=== PATIENT | female | born 1950 | race Hispanic/Latino ===

== ENCOUNTER 2017-04-25 18:17 | Observation (INO) | payer BC, MEDICARE ==
[~2017-04-25] VITALS: Ht 152.4 cm; Wt 82.9 kg
[2017-04-25 18:49] LABS: BASOPHILS % (AUTO) 0.3 % (0.0-5.0); EOSINOPHILS % (AUTO) 0.1 % (0.0-8.0); HEMATOCRIT 40.6 % (36-48); LYMPHOCYTES % (AUTO) 7.5 % (21.0-51.0); MEAN CORPUSCULAR HEMOGLOBIN 32.1 pg (27.0-33.0); MEAN CORPUSCULAR HGB CONC 32.9 g/dL (32.0-36.0); MEAN CORPUSCULAR VOLUME 97.4 fL (79-99); MONOCYTES % (AUTO) 8.4 % (3.0-13.0); NEUTROPHILS % (AUTO) 83.7 % (40.0-77.0); PLATELET COUNT (AUTO) 327 K/uL (130-400); RED BLOOD CELL COUNT(AUTO) 4.16 MIL/uL (4.00-5.50); RED CELL DISTRIBUTION WIDTH 15.3 % (11.0-15.5); WHITE BLOOD COUNT (AUTO) 19.4 K/uL (4.8-10.8)
[2017-04-25 19:03] LABS: INR 0.94 (0.85-1.15); PARTIAL THROMBOPLASTIN TIME 27.4 SEC (26.3-35.5); PROTHROMBIN TIME 9.9 SEC (9.6-11.6)
[2017-04-25 19:06] LABS: POTASSIUM 3.7 mmol/L (3.5-5.1)
[2017-04-25 19:21] LABS: BILIRUBIN,TOTAL 0.4 mg/dL (0.2-1.0); CREATINE KINASE MB 1.1 ng/mL (0.5-3.6); TOTAL PROTEIN, SERUM 7.8 g/dL (6.0-8.3)
[2017-04-25 20:14] LABS: APPEARANCE,URINE Cloudy (CLEAR); BILIRUBIN,URINE Negative (NEGATIVE); COLOR,URINE Yellow (YELLOW); GLUCOSE, URINE (UA) Negative (NEGATIVE); KETONES,URINE Negative (NEGATIVE); LEUKOCYTE ESTERASE ,URINE Negative (NEGATIVE); NITRATE,URINE Negative (NEGATIVE); OCCULT BLOOD,URINE Negative (NEGATIVE); PH,URINE 5.5 (5.0-8.0); PROTEIN,URINE Negative (NEGATIVE); UROBILINOGEN,URINE 0.2 mg/dL (0.2-1.0)
[2017-04-25 21:09] LABS: RAPID GROUP A STREP NEGATIVE (NEGATIVE)
[2017-04-25] MEDS ORDERED: IOPAMIDOL-370 100 ML VIAL IV ONE (22:47)
[2017-04-26] MEDS ORDERED: ACETAMINOPHEN-CODEINE 300/30MG TAB ONE (01:18)
[2017-04-26] MEDS ORDERED: SODIUM CHLORIDE 0.9% 1000ML 1,000 ML IV ONE (01:57)
[2017-04-26] MEDS ORDERED: LEVOFLOXACIN 500 MG/D5W 100 ML 100 ML ONE (01:57)
[2017-04-26 02:34] VITALS: BP 130/70
[2017-04-26] MEDS ORDERED: IPRATROPIUM/ALBUTEROL SULFATE 3 ML SOLUTION IH ONE (05:11)
[2017-04-26 05:39] LABS: HEMATOCRIT 35.4 % (36-48); MEAN CORPUSCULAR HEMOGLOBIN 33.3 pg (27.0-33.0); MEAN CORPUSCULAR HGB CONC 34.4 g/dL (32.0-36.0); MEAN CORPUSCULAR VOLUME 96.8 fL (79-99); PLATELET COUNT (AUTO) 289 K/uL (130-400); RED BLOOD CELL COUNT(AUTO) 3.65 MIL/uL (4.00-5.50); RED CELL DISTRIBUTION WIDTH 15.4 % (11.0-15.5); WHITE BLOOD COUNT (AUTO) 10.9 K/uL (4.8-10.8)
[2017-04-26] MEDS ORDERED: LIDOCAINE HCL-MPF 1% 2ML VIAL IVP PRN (05:45)
[2017-04-26] MEDS ORDERED: CLONIDINE HCL 0.1 MG TABLET PO PRN (05:45)
[2017-04-26] MEDS ORDERED: GUAIFENESIN-DM 200/20 MG 10 ML PO PRN (05:45)
[2017-04-26] MEDS ORDERED: POTASSIUM CHLORIDE 20MEQ/100ML 100 ML IV PRN (05:45)
[2017-04-26] MEDS ORDERED: LACTULOSE 20 GM/30 ML UDCUP PO PRN (05:45)
[2017-04-26] MEDS ORDERED: POTASSIUM CHLORIDE 20 MEQ ERTAB PO PRN (05:45)
[2017-04-26] MEDS ORDERED: NITROGLYCERIN 0.4 MG SL TAB SL PRN (05:45)
[2017-04-26] MEDS ORDERED: ACETAMINOPHEN 325 MG TAB PO PRN (05:45)
[2017-04-26] MEDS ORDERED: POTASSIUM CHLORIDE 10% ELIXIR 20 MEQ/15 ML UDCUP PO PRN (05:45)
[2017-04-26] MEDS ORDERED: SODIUM CHLORIDE 0.9% 1000ML 1,000 ML IV SCH (05:45)
[2017-04-26 06:12] LABS: CARBON DIOXIDE 28 mmol/L (21-32); CHLORIDE 105 mmol/L (101-111); CREATINE KINASE MB 0.9 ng/mL (0.5-3.6); CREATINE KINASE, TOTAL 49 U/L (21-232); CREATININE 0.9 mg/dL (0.5-1.5); GLOMERULAR FILTR. RATE CALC 67 mL/min (>60); GLUCOSE,RANDOM 75 mg/dL (70-105); MYOGLOBIN 55 ng/mL (10-92); POTASSIUM 3.6 mmol/L (3.5-5.1); SODIUM SERUM 140 mmol/L (136-145); TROPONIN I < 0.04 ng/mL (0.00-0.06); UREA NITROGEN, BLOOD 12 mg/dL (7-18)
[2017-04-26 07:30] VITALS: BP 125/68
[2017-04-26] MEDS ORDERED: PNEUMOCOCCAL VACCINE POLYVALENT 0.5 ML/VIAL [PPV] IM SCH (08:00)
[2017-04-26 08:14] LABS: EOSINOPHILS % (MANUAL) 1 % (1-6); LYMPHOCYTES % (MANUAL) 12 % (22-44); MAN.DIFF COMMENT-IMPRESSION MANUAL DIFFERENTIAL; MONOCYTES % (MANUAL) 5 % (2-9); PLATELET MORPHOLOGY COMMENT ADEQUATE; SEGMENTED NEUTROPHILS % 82 % (40-70)
[2017-04-26 08:16] LABS: ERYTHROCYTE SEDIMENTATION RATE 75 MM/HR (0-15)
[2017-04-26] MEDS ORDERED: ASPIRIN 81MG TAB.CHEW PO SCH (09:00)
[2017-04-26] MEDS ORDERED: FAMOTIDINE 20MG TAB 20 MG TAB PO SCH (09:00)
[2017-04-26] MEDS ORDERED: OMEP40CA37 PO (10:52)
[2017-04-26] MEDS ORDERED: HYDR200T82 PO (10:52)
[2017-04-26] MEDS ORDERED: BENZ200C53 PO (10:52)
[2017-04-26] MEDS ORDERED: SULF500T8 PO (10:52)
[2017-04-26] MEDS ORDERED: TOFA11TA PO (10:52)
[2017-04-26] MEDS ORDERED: PRED5TAB44 PO (10:52)
[2017-04-26 11:00] VITALS: BP 145/70
[2017-04-26 11:33] LABS: CREATINE KINASE MB 0.6 ng/mL (0.5-3.6); CREATINE KINASE, TOTAL 56 U/L (21-232); MYOGLOBIN 45 ng/mL (10-92); TROPONIN I < 0.04 ng/mL (0.00-0.06)
[2017-04-27] MEDS ORDERED: LEVOFLOXACIN 500 MG/D5W 100 ML 100 ML IV SCH (04:00)
== END 2017-04-26 13:40 | disposition home or self-care (01) ==
LOC: EDH 18:17 → EDHIP 22:00 → 3CH 04-26 02:52
PROVIDERS: ADMIT Family Medicine; ATTEND Family Medicine
DX: R07.89 Other chest pain (principal); M06.9 Rheumatoid arthritis, unspecified; J84.10 Pulmonary fibrosis, unspecified; D72.829 Elevated white blood cell count, unspecified; Z79.899 Other long term (current) drug therapy
CPT/HCPCS: 36415 ×2; 71046; 71275; 80048; 80053; 81001; 82550 ×3; 82553 ×3; 83605; 83874 ×2; 84484 ×3; 85025 ×2; 85610; 85651; 85730; 87040; 87804 ×2; 87880; 93005 ×2; 94640; 94664; 99285; G0378 ×16; J1956; J7030; Q9967

== ENCOUNTER 2017-07-27 07:14 | Emergency (ER) | payer BC, MEDICARE ==
[~2017-07-27 07:14] MED LIST: BENZ200C53 PO; HYDR200T82 PO; OMEP40CA37 PO; PRED5TAB44 PO; SULF500T8 PO; TOFA11TA PO
[2017-07-27] MEDS ORDERED: NITROGLYCERIN 0.4 MG SL TAB SL ONE (07:35)
[2017-07-27 07:39] LABS: BASOPHILS % (AUTO) 0.2 % (0.0-5.0); EOSINOPHILS % (AUTO) 0.4 % (0.0-8.0); HEMATOCRIT 38.5 % (36-48); LYMPHOCYTES % (AUTO) 6.3 % (21.0-51.0); MEAN CORPUSCULAR HEMOGLOBIN 32.7 pg (27.0-33.0); MEAN CORPUSCULAR HGB CONC 33.7 g/dL (32.0-36.0); MEAN CORPUSCULAR VOLUME 96.9 fL (79-99); MONOCYTES % (AUTO) 5.6 % (3.0-13.0); NEUTROPHILS % (AUTO) 87.5 % (40.0-77.0); PLATELET COUNT (AUTO) 248 K/uL (130-400); RED BLOOD CELL COUNT(AUTO) 3.97 MIL/uL (4.00-5.50); RED CELL DISTRIBUTION WIDTH 14.8 % (11.0-15.5); WHITE BLOOD COUNT (AUTO) 14.2 K/uL (4.8-10.8)
[2017-07-27 07:54] LABS: CREATININE 0.9 mg/dL (0.5-1.5); POTASSIUM 3.6 mmol/L (3.5-5.1)
[2017-07-27 08:10] LABS: BILIRUBIN,TOTAL 0.3 mg/dL (0.2-1.0); CREATINE KINASE MB 1.3 ng/mL (0.5-3.6); TOTAL PROTEIN, SERUM 7.2 g/dL (6.0-8.3)
[2017-07-27 08:19] LABS: INR 0.92 (0.85-1.15); PARTIAL THROMBOPLASTIN TIME 25.7 SEC (26.3-35.5); PROTHROMBIN TIME 9.7 SEC (9.6-11.6)
[2017-07-27] MEDS ORDERED: METHYLPREDNISOLONE SOD SUCC 40MG/ML 1ML ONE (08:23)
[2017-07-27] MEDS ORDERED: ALBUTEROL SULFATE 0.083% 2.5 MG/3 ML INH IH ONE (08:40)
[2017-07-27] MEDS ORDERED: KETOROLAC TROMETHAMINE 15MG/ML ONE (10:33)
== END 2017-07-27 11:40 | disposition home or self-care (01) ==
LOC: EDH 07:14
DX: R07.89 Other chest pain (principal); R06.02 Shortness of breath; M79.605 Pain in left leg; M06.9 Rheumatoid arthritis, unspecified
CPT/HCPCS: 36415; 71045; 80053; 82550; 82553; 84484 ×2; 85025; 85610; 85730; 93005 ×2; 94640; 96374; 96375; 99285; J1885; J2920

== ENCOUNTER 2019-08-15 12:50 | Emergency (ER) | payer BC, MEDICARE | END 2019-08-15 15:26 | disposition home or self-care (01) | LOC: EDH 12:50 | DX: U07.1 COVID-19 (principal); B34.9 Viral infection, unspecified; M06.9 Rheumatoid arthritis, unspecified | CPT/HCPCS: 36415; 71045; 80053; 81001; 82550; 82728; 83605; 83874; 84145; 84484; 85025; 85610; 85730; 87040 ×2; 87088; 87804 ×2; 93005; 99285; U0003 ==

== ENCOUNTER 2020-05-17 11:49 | Observation (INO) | payer BC, MEDICARE ==
[~2020-05-17 11:49] MED LIST changes: +OMEP40CA13 PO; -OMEP40CA37 PO
[2020-05-17 12:24] LABS: BASOPHILS % (AUTO) 0.2 % (0.0-5.0); EOSINOPHILS % (AUTO) 0.9 % (0.0-8.0); HEMATOCRIT 35.6 % (36-48); LYMPHOCYTES % (AUTO) 4.9 % (21.0-51.0); MEAN CORPUSCULAR HGB CONC 32.9 g/dL (32.0-36.0); MEAN CORPUSCULAR VOLUME 94.2 fL (79-99); NEUTROPHILS % (AUTO) 87.6 % (40.0-77.0); PLATELET COUNT (AUTO) 189 K/uL (130-400); RED BLOOD CELL COUNT(AUTO) 3.78 MIL/uL (4.00-5.50); RED CELL DISTRIBUTION WIDTH 16.9 % (11.0-15.5); WHITE BLOOD COUNT (AUTO) 10.3 K/uL (4.8-10.8)
[2020-05-17] MEDS ORDERED: MECLIZINE HCL 25 MG TABLET ONE (12:27)
[2020-05-17 12:35] LABS: INR 0.98 (0.85-1.15); PROTHROMBIN TIME 10.7 SEC (9.6-11.6)
[2020-05-17 12:36] LABS: PARTIAL THROMBOPLASTIN TIME 22.3 SEC (26.3-35.5)
[2020-05-17 12:46] LABS: CREATININE 0.8 mg/dL (0.5-1.5); POTASSIUM 3.7 mmol/L (3.5-5.1)
[2020-05-17 12:48] LABS: B-TYPE NATRIURETIC PEPTIDE 71 pg/mL (0-100)
[2020-05-17 12:50] LABS: ALBUMIN 2.8 g/dL (3.5-5.0); BILIRUBIN,TOTAL 0.4 mg/dL (0.2-1.0); TOTAL PROTEIN, SERUM 6.6 g/dL (6.0-8.3)
[2020-05-17] MEDS ORDERED: IOHEXOL-350 75 ML VIAL IV ONE (14:45)
[2020-05-17] MEDS ORDERED: LIDOCAINE HCL-MPF 1% 2ML VIAL IV PRN ×2 (15:15)
[2020-05-17] MEDS ORDERED: POTASSIUM CHLORIDE 20MEQ/100ML 100 ML IV PRN ×2 (15:15)
[2020-05-17] MEDS: ENOXAPARIN SODIUM 40 MG/0.4 ML SYRINGE SQ SCH (15:15)
[2020-05-17] MEDS ORDERED: POTASSIUM CHLORIDE 20 MEQ ERTAB PO PRN (15:15)
[2020-05-17] MEDS ORDERED: LABETALOL HCL 5 MG/ML 20ML VIAL IV PRN (15:15)
[2020-05-17] MEDS: SODIUM CHLORIDE 0.9% 1000ML 1,000 ML IV SCH (15:15)
[2020-05-17] MEDS ORDERED: DEXTROSE 50%-WATER 50 ML DISP.SYRIN IV PRN (15:15)
[2020-05-17] MEDS ORDERED: POTASSIUM CHLORIDE 10% ELIXIR 20 MEQ/15 ML UDCUP PO PRN (15:15)
[2020-05-17] MEDS ORDERED: ONDANSETRON HCL 4 MG/2 ML VIAL IVP PRN (15:15)
[2020-05-17] MEDS ORDERED: GLUCAGON 1MG KIT 1 MG ML IM PRN (15:15)
[2020-05-17] MEDS ORDERED: ACETAMINOPHEN 325 MG TAB PO PRN (15:15)
[2020-05-17] MEDS ORDERED: MAGNESIUM 2GM PREMIX 50ML 50 ML IV PRN (15:15)
[2020-05-17 15:59] LABS: APPEARANCE,URINE Turbid (CLEAR); BILIRUBIN,URINE Negative (NEGATIVE); COLOR,URINE Yellow (YELLOW); GLUCOSE, URINE (UA) Negative (NEGATIVE); KETONES,URINE 15 mg/dL (NEGATIVE); LEUKOCYTE ESTERASE ,URINE Small (NEGATIVE); NITRATE,URINE Negative (NEGATIVE); OCCULT BLOOD,URINE Negative (NEGATIVE); PH,URINE 5.5 (5.0-8.0); PROTEIN,URINE POS 1+ mg/dL (NEGATIVE); UROBILINOGEN,URINE 0.2 mg/dL (0.2-1.0)
[2020-05-17 16:04] LABS: BACTERIA,URINE Many /HPF (None Seen); RBC,URINE None Seen /HPF (0-1); SQUAMOUS EPITHELIAL CELL,UR TNTC /HPF (0-2)
[2020-05-17] MEDS: INSULIN HUMULIN R 100 UNIT/ML 3ML SQ SCH ×2 (16:30→21:00)
[2020-05-17 16:57] LABS: HEMOGLOBIN A1C 5.4 % (4.0-6.0)
[2020-05-17] MEDS ORDERED: SODIUM CHLORIDE 0.9% 1000ML 1,000 ML IV ONE (18:34)
[2020-05-17] MEDS ORDERED: ENOXAPARIN SODIUM 40 MG/0.4 ML SYRINGE SQ ONE (18:34)
[2020-05-18] MEDS: SODIUM CHLORIDE 0.9% 1000ML 1,000 ML IV SCH ×2 (04:35→16:56)
[2020-05-18 06:24] LABS: HEMATOCRIT 33.1 % (36-48); MEAN CORPUSCULAR HEMOGLOBIN 30.2 pg (27.0-33.0); MEAN CORPUSCULAR HGB CONC 32.3 g/dL (32.0-36.0); MEAN CORPUSCULAR VOLUME 93.5 fL (79-99); RED BLOOD CELL COUNT(AUTO) 3.54 MIL/uL (4.00-5.50); RED CELL DISTRIBUTION WIDTH 16.8 % (11.0-15.5); WHITE BLOOD COUNT (AUTO) 7.6 K/uL (4.8-10.8)
[2020-05-18 06:41] LABS: ALBUMIN 2.4 g/dL (3.5-5.0); BILIRUBIN,TOTAL 0.4 mg/dL (0.2-1.0); CREATININE 0.7 mg/dL (0.5-1.5); POTASSIUM 3.2 mmol/L (3.5-5.1); TOTAL PROTEIN, SERUM 5.8 g/dL (6.0-8.3)
[2020-05-18] MEDS: INSULIN HUMULIN R 100 UNIT/ML 3ML SQ SCH ×4 (07:30→20:22)
[2020-05-18] MEDS ORDERED: ASPIRIN 81MG TAB.CHEW ONE (08:22)
[2020-05-18] MEDS ORDERED: ENOXAPARIN SODIUM 40 MG/0.4 ML SYRINGE SQ ONE (08:22)
[2020-05-18] MEDS ORDERED: PANTOPRAZOLE SODIUM 40 MG TABLET.DR ONE (08:23)
[2020-05-18] MEDS ORDERED: POTASSIUM CHLORIDE 20 MEQ ERTAB PO ONE (08:35)
[2020-05-18] MEDS: ENOXAPARIN SODIUM 40 MG/0.4 ML SYRINGE SQ SCH (09:00)
[2020-05-18] MEDS: ASPIRIN 81MG TAB.CHEW PO SCH (09:00)
[2020-05-18] MEDS: PANTOPRAZOLE SODIUM 40 MG TABLET.DR PO SCH (09:00)
[2020-05-18 12:00] VITALS: BP 143/82
[2020-05-18 16:00] VITALS: BP 149/75
[2020-05-18 20:08] VITALS: BP 143/59
[2020-05-18] MEDS ORDERED: ATORVASTATIN CALCIUM 20 MG TABLET PO SCH (21:00)
[2020-05-18 23:48] VITALS: BP 124/70
[2020-05-19 05:00] VITALS: BP 124/57
[2020-05-19 05:17] LABS: ALBUMIN 2.3 g/dL (3.5-5.0); BILIRUBIN,TOTAL 0.4 mg/dL (0.2-1.0); CREATININE 0.9 mg/dL (0.5-1.5); POTASSIUM 3.8 mmol/L (3.5-5.1); TOTAL PROTEIN, SERUM 5.6 g/dL (6.0-8.3)
[2020-05-19] MEDS: INSULIN HUMULIN R 100 UNIT/ML 3ML SQ SCH ×2 (06:25→11:30)
[2020-05-19] MEDS: SODIUM CHLORIDE 0.9% 1000ML 1,000 ML IV SCH (06:34)
[2020-05-19 08:59] VITALS: BP 154/75
[2020-05-19] MEDS: PANTOPRAZOLE SODIUM 40 MG TABLET.DR PO SCH (08:59)
[2020-05-19] MEDS: ENOXAPARIN SODIUM 40 MG/0.4 ML SYRINGE SQ SCH (09:00)
[2020-05-19] MEDS: ASPIRIN 81MG TAB.CHEW PO SCH (09:00)
[2020-05-19] MEDS ORDERED: ATOR10 PO (09:07)
[2020-05-19] MEDS ORDERED: MELO10CA3 PO (09:09)
[2020-05-19] MEDS ORDERED: HYDR200T82 PO (09:10)
[2020-05-19] MEDS ORDERED: LEFL10TA PO (09:11)
[2020-05-19] MEDS ORDERED: LACT1CAP78 PO (09:14)
[2020-05-19] MEDS ORDERED: CEFTRIAXONE SODIUM 1 GM IVP SCH (09:30)
[2020-05-19 12:35] VITALS: BP 150/83
[2020-05-19] MEDS ORDERED: LEVO500T89 PO (12:57)
== END 2020-05-19 15:10 | disposition home or self-care (01) ==
LOC: EDH 11:49 → EDHIP 15:08 → 4DH 05-18 10:34
PROVIDERS: ADMIT Internal Medicine Pulmonary Disease; ATTEND Internal Medicine Pulmonary Disease
DX: R42 Dizziness and giddiness (principal); Z20.822 Contact with and (suspected) exposure to COVID-19; R41.3 Other amnesia; M06.9 Rheumatoid arthritis, unspecified; M79.662 Pain in left lower leg; M79.661 Pain in right lower leg; E78.5 Hyperlipidemia, unspecified; E66.9 Obesity, unspecified; I65.23 Occlusion and stenosis of bilateral carotid arteries; Z90.710 Acquired absence of both cervix and uterus; Z79.82 Long term (current) use of aspirin; Z79.899 Other long term (current) drug therapy
CPT/HCPCS: 36415 ×3; 70450; 70496; 70498; 70551; 71045; 80053 ×3; 80061; 81001; 82550; 82948 ×5; 83036; 83735; 83880; 84484 ×2; 85025; 85027; 85378; 85610; 85730; 87040 ×2; 87088; 87426; 92610; 93005; 93306; 93356; 93880; 93970; 96361; 96372; 96374; 99285; G0378 ×47; J0696; J1650 ×3; J7030; Q9967; U0003

== ENCOUNTER 2021-10-22 01:33 | Observation (INO) | payer MEDICARE ==
[~2021-10-22] VITALS: Ht 152.4 cm; Wt 55.3 kg
[~2021-10-22 01:33] MED LIST changes: +ATOR10 PO; +LACT1CAP78 PO; +LEFL10TA PO; +LEVO-70 PO; +MELO10CA3 PO; -OMEP40CA13 PO; -PRED5TAB44 PO; -SULF500T8 PO; -TOFA11TA PO
[2021-10-22] MEDS ORDERED: LACTATED RINGERS 1000ML 1,000 ML IV ONE (02:00)
[2021-10-22] MEDS ORDERED: HYDROMORPHONE 1 MG INJ IVP ONE (02:00)
[2021-10-22] MEDS ORDERED: ONDANSETRON 4MG INJ IVP ONE (02:00)
[2021-10-22 02:07] LABS: BASOPHILS % (AUTO) 0.3 % (0.0-5.0); EOSINOPHILS % (AUTO) 2.9 % (0.0-8.0); HEMATOCRIT 35.7 % (36-48); LYMPHOCYTES % (AUTO) 12.8 % (21.0-51.0); MEAN CORPUSCULAR HEMOGLOBIN 31.5 pg (27.0-33.0); MEAN CORPUSCULAR HGB CONC 32.8 g/dL (32.0-36.0); MEAN CORPUSCULAR VOLUME 96.2 fL (79-99); NEUTROPHILS % (AUTO) 74.7 % (40.0-77.0); PLATELET COUNT (AUTO) 242 K/uL (130-400); RED BLOOD CELL COUNT(AUTO) 3.71 MIL/uL (4.00-5.50); RED CELL DISTRIBUTION WIDTH 14.2 % (11.0-15.5)
[2021-10-22 02:18] LABS: POTASSIUM 4.4 mmol/L (3.5-5.1)
[2021-10-22 02:30] LABS: APPEARANCE,URINE CLEAR (CLEAR); BILIRUBIN,URINE NEGATIVE (NEGATIVE); COLOR,URINE YELLOW (YELLOW); GLUCOSE, URINE (UA) NEGATIVE (NEGATIVE); KETONES,URINE NEGATIVE (NEGATIVE); LEUKOCYTE ESTERASE ,URINE NEGATIVE (NEGATIVE); NITRATE,URINE NEGATIVE (NEGATIVE); OCCULT BLOOD,URINE NEGATIVE (NEGATIVE); PH,URINE 5.5 (5.0-8.0); PROTEIN,URINE 100 mg/dL (NEGATIVE); UROBILINOGEN,URINE 0.2 mg/dL (0.2-1.0)
[2021-10-22] MEDS ORDERED: ZOSYN 3.375GM +NS 50ML IV SCH ×2 (03:00→11:00)
[2021-10-22] MEDS ORDERED: IRON1CAP32 PO (03:19)
[2021-10-22] MEDS ORDERED: LEFL20TA18 PO (03:19)
[2021-10-22] MEDS ORDERED: ONDA-104 PO (03:19)
[2021-10-22] MEDS ORDERED: POTA-202 PO (03:19)
[2021-10-22] MEDS ORDERED: MELO10CA3 PO (03:19)
[2021-10-22] MEDS ORDERED: CARV6.25 PO (03:19)
[2021-10-22] MEDS ORDERED: HYDR200T4 PO (03:19)
[2021-10-22] MEDS ORDERED: ATOR10 PO (03:19)
[2021-10-22] MEDS ORDERED: HYDRALAZINE 20MG/ML VIAL IV PRN (04:00)
[2021-10-22] MEDS ORDERED: LABETALOL 20MG SYG IV PRN (04:00)
[2021-10-22] MEDS: LACTATED RINGERS 1000ML 1,000 ML IV SCH ×3 (04:16→20:48)
[2021-10-22 05:30] VITALS: BP 143/55
[2021-10-22 06:20] LABS: HEMATOCRIT 34.9 % (36-48); MEAN CORPUSCULAR HGB CONC 32.1 g/dL (32.0-36.0); MEAN CORPUSCULAR VOLUME 96.7 fL (79-99); RED BLOOD CELL COUNT(AUTO) 3.61 MIL/uL (4.00-5.50); RED CELL DISTRIBUTION WIDTH 14.1 % (11.0-15.5)
[2021-10-22 06:36] LABS: CREATININE 0.9 mg/dL (0.5-1.5); MAGNESIUM 1.7 mg/dL (1.80-2.40); POTASSIUM 3.9 mmol/L (3.5-5.1)
[2021-10-22] MEDS: INSULIN HUMULIN R 100 UNIT/ML 3ML SQ SCH ×4 (06:37→21:00)
[2021-10-22] MEDS: MORPHINE 2 MG SYG IVP PRN ×2 (06:43→10:54)
[2021-10-22 07:56] LABS: INR 0.98 (0.85-1.15); PROTHROMBIN TIME 10.7 SEC (9.6-11.6)
[2021-10-22 07:57] LABS: PARTIAL THROMBOPLASTIN TIME 27.9 SEC (26.3-35.5)
[2021-10-22 08:00] VITALS: BP 129/63
[2021-10-22] MEDS ORDERED: CLONIDINE HCL 0.1 MG TABLET PO PRN (08:00)
[2021-10-22] MEDS: ONDANSETRON 4MG INJ IVP PRN ×2 (10:52→21:37)
[2021-10-22 11:55] VITALS: BP 165/76
[2021-10-22] MEDS: HYDROMORPHONE 0.5 MG SYG (0.5MG/0.5ML) IVP PRN ×2 (13:53→21:38)
[2021-10-22] MEDS: ZOSYN 3.375GM +NS 50ML IV SCH ×2 (14:59→21:04)
[2021-10-22 16:00] VITALS: BP 152/72
[2021-10-22 19:00] VITALS: BP 155/82
[2021-10-23] VITALS (28 sets, daily range): BP systolic 126–184; BP diastolic 44–82
[2021-10-23] MEDS ORDERED: DEXTROSE 5%-WATER 1,000 ML IV ONE (00:51)
[2021-10-23] MEDS: DEXTROSE 5%-WATER 1,000 ML IV SCH ×2 (00:55→19:24)
[2021-10-23] MEDS ORDERED: DEXTROSE 50%-WATER 50 ML DISP.SYRIN IV PRN (01:00)
[2021-10-23] MEDS ORDERED: GLUCAGON 1MG KIT 1 MG ML IM PRN (01:00)
[2021-10-23] MEDS: HYDROMORPHONE 0.5 MG SYG (0.5MG/0.5ML) IVP PRN (03:19)
[2021-10-23] MEDS: LACTATED RINGERS 1000ML 1,000 ML IV SCH ×3 (04:00→20:00)
[2021-10-23 04:54] LABS: BASOPHILS % (AUTO) 0.3 % (0.0-5.0); EOSINOPHILS % (AUTO) 0.1 % (0.0-8.0); HEMATOCRIT 33.6 % (36-48); LYMPHOCYTES % (AUTO) 4.5 % (21.0-51.0); MEAN CORPUSCULAR HEMOGLOBIN 31.3 pg (27.0-33.0); MEAN CORPUSCULAR HGB CONC 32.4 g/dL (32.0-36.0); MEAN CORPUSCULAR VOLUME 96.6 fL (79-99); NEUTROPHILS % (AUTO) 85.5 % (40.0-77.0); PLATELET COUNT (AUTO) 196 K/uL (130-400); RED BLOOD CELL COUNT(AUTO) 3.48 MIL/uL (4.00-5.50); RED CELL DISTRIBUTION WIDTH 14.1 % (11.0-15.5); WHITE BLOOD COUNT (AUTO) 17.7 K/uL (4.8-10.8)
[2021-10-23] MEDS: ZOSYN 3.375GM +NS 50ML IV SCH ×3 (05:10→19:24)
[2021-10-23 05:26] LABS: ALBUMIN 2.4 g/dL (3.5-5.0); CREATININE 0.8 mg/dL (0.5-1.5); PHOSPHORUS 4.2 mg/dL (2.5-4.9); POTASSIUM 3.9 mmol/L (3.5-5.1); TOTAL PROTEIN, SERUM 5.9 g/dL (6.0-8.3)
[2021-10-23] MEDS: INSULIN HUMULIN R 100 UNIT/ML 3ML SQ SCH ×5 (06:00→19:26)
[2021-10-23] MEDS ORDERED: BUPIVACAINE/PF 0.5% 10ML VIAL ONE (06:46)
[2021-10-23] MEDS ORDERED: FENTANYL CITRATE PF 50 MCG/1 ML 5ML AMP IV ONE (06:49)
[2021-10-23] MEDS ORDERED: ROCURONIUM 10MG/1ML SYR 10 MG/ML ML ONE (06:49)
[2021-10-23] MEDS ORDERED: PROPOFOL 10 MG/ML 20ML VIAL IV ONE (06:49)
[2021-10-23] MEDS ORDERED: ONDANSETRON 4MG INJ ONE (06:50)
[2021-10-23] MEDS ORDERED: MIDAZOLAM HCL 1 MG/ML 2ML VIAL ONE (07:05)
[2021-10-23] MEDS ORDERED: PHENYLEPHRINE HCL 10 MG/ML 1ML VIAL IV ONE (07:21)
[2021-10-23] MEDS ORDERED: GLYCOPYRROLATE 1 MG/5 ML SYRINGE ONE (08:31)
[2021-10-23] MEDS ORDERED: NEOSTIGMINE 5MG/5ML SYR IV ONE (08:32)
[2021-10-23] MEDS ORDERED: MORPHINE 2 MG SYG ONE ×3 (08:49→09:11)
[2021-10-23 18:23] LABS: ALBUMIN 2.1 g/dL (3.5-5.0); BILIRUBIN,DIRECT 0.2 mg/dL (0.0-0.3); TOTAL PROTEIN, SERUM 5.3 g/dL (6.0-8.3)
[2021-10-23] MEDS: GUAIFENESIN-DM 200/20 MG 10 ML PO PRN (19:24)
[2021-10-24] VITALS: BP 130/65
[2021-10-24 04:00] VITALS: BP 135/73
[2021-10-24] MEDS: INSULIN HUMULIN R 100 UNIT/ML 3ML SQ SCH ×2 (05:18→12:00)
[2021-10-24] MEDS: ZOSYN 3.375GM +NS 50ML IV SCH ×2 (05:23→15:43)
[2021-10-24 05:24] LABS: BASOPHILS % (AUTO) 0.2 % (0.0-5.0); EOSINOPHILS % (AUTO) 0.3 % (0.0-8.0); HEMATOCRIT 29.8 % (36-48); LYMPHOCYTES % (AUTO) 7.1 % (21.0-51.0); MEAN CORPUSCULAR HEMOGLOBIN 30.4 pg (27.0-33.0); MEAN CORPUSCULAR HGB CONC 31.9 g/dL (32.0-36.0); MEAN CORPUSCULAR VOLUME 95.5 fL (79-99); MONOCYTES % (AUTO) 9.6 % (3.0-13.0); NEUTROPHILS % (AUTO) 82.3 % (40.0-77.0); PLATELET COUNT (AUTO) 169 K/uL (130-400); RED BLOOD CELL COUNT(AUTO) 3.12 MIL/uL (4.00-5.50); RED CELL DISTRIBUTION WIDTH 14.3 % (11.0-15.5); WHITE BLOOD COUNT (AUTO) 13.6 K/uL (4.8-10.8)
[2021-10-24 05:36] LABS: ALBUMIN 2.1 g/dL (3.5-5.0); BILIRUBIN,DIRECT 0.2 mg/dL (0.0-0.3); CREATININE 0.9 mg/dL (0.5-1.5); POTASSIUM 3.5 mmol/L (3.5-5.1); TOTAL PROTEIN, SERUM 5.4 g/dL (6.0-8.3)
[2021-10-24] MEDS: LACTATED RINGERS 1000ML 1,000 ML IV SCH (07:27)
[2021-10-24 08:00] VITALS: BP 149/74
[2021-10-24] MEDS: GUAIFENESIN-DM 200/20 MG 10 ML PO PRN (08:56)
[2021-10-24] MEDS ORDERED: ENOXAPARIN SODIUM 30 MG/0.3 ML SQ SCH (09:00)
[2021-10-24] MEDS ORDERED: AMOX-426 PO (11:22)
[2021-10-24] MEDS ORDERED: TRAM50TA4 PO (11:28)
[2021-10-24 11:49] VITALS: BP 121/54
[2021-10-24] MEDS ORDERED: ACETAMINOPHEN 325 MG TAB PO PRN (15:30)
== END 2021-10-24 17:20 | disposition home or self-care (01) ==
LOC: EDH 01:33 → EDHIP 03:34 → 4AH 05:21
PROVIDERS: ADMIT Internal Medicine Critical Care Medicine; ATTEND Internal Medicine Critical Care Medicine
DX: K81.0 Acute cholecystitis (principal); Z20.822 Contact with and (suspected) exposure to COVID-19; I10 Essential (primary) hypertension; J45.909 Unspecified asthma, uncomplicated; D72.829 Elevated white blood cell count, unspecified; E78.5 Hyperlipidemia, unspecified; E78.00 Pure hypercholesterolemia, unspecified; R11.2 Nausea with vomiting, unspecified; M19.90 Unspecified osteoarthritis, unspecified site; K82.A1 Gangrene of gallbladder in cholecystitis; M06.9 Rheumatoid arthritis, unspecified; Z90.710 Acquired absence of both cervix and uterus; Z79.899 Other long term (current) drug therapy; Z98.890 Other specified postprocedural states
CPT/HCPCS: 96376 ×2; 96361 ×2; 96365; 96366 ×3; 96375; 99285; 83735; 84484; 80053 ×3; 83690; 85025 ×3; 85027; 85610; 85730; 87040 ×2; 82948 ×10; 83605; 81003; 36415 ×3; 74176; 76705; 93005; 84145; 47562; 84100; 87635; 96372; 82248; G0378 ×58; J7120 ×3; J1170 ×4; J2405 ×4; J2543 ×8; J7030; A4215; J7070 ×4; J3010; J3490 ×2; J2710; J2250; J2704; J2370; A6206; C1769 ×4; A4649 ×3; J1650; 80048; 80076

== ENCOUNTER → 2023-02-21 | Outpatient (CLI) | payer MEDICARE ==
[~2023-02-21] MED LIST changes: +AMOX-426 PO; -BENZ200C53 PO; +CARV6.25 PO; +HYDR200T75 PO; +IRON1CAP32 PO; -LEFL10TA PO; +LEFL20TA18 PO; -LEVO-70 PO; +ONDA-104 PO; +POTA-202 PO; +TRAM50TA4 PO
== END | disposition home or self-care (01) ==
LOC: RAH 08:00
PROVIDERS: ATTEND Internal Medicine
DX: S33.140A Subluxation of L4/L5 lumbar vertebra, initial encounter (principal); M47.817 Spondylosis without myelopathy or radiculopathy, lumbosacral region; M54.50 Low back pain, unspecified; X58.XXXA Exposure to other specified factors, initial encounter; Y93.89 Activity, other specified; Y92.89 Other specified places as the place of occurrence of the external cause; Y99.8 Other external cause status
CPT/HCPCS: 72100

== ENCOUNTER → 2023-09-05 | Outpatient (CLI) | payer MEDICARE ==
[~2023-09-05] MED LIST changes: -LEFL20TA18 PO; +LEFL20TA22 PO
== END | disposition home or self-care (01) ==
LOC: RAH 07:03
PROVIDERS: ATTEND Internal Medicine
DX: R92.321 Mammographic fibroglandular density, right breast (principal); R92.30 Dense breasts, unspecified; N64.4 Mastodynia
CPT/HCPCS: 77066

== ENCOUNTER 2024-12-26 06:26 | Observation (INO) | payer MEDICARE ==
[2024-12-25 12:11] LABS: IMMATURE GRANULOCYTE ABSOLUTE 0.10 K/uL (0-1); NUCLEATED RED BLOOD CELLS 0.0 % (0.0-0.19); PLATELET COUNT (AUTO) 281 K/uL (130-400); RED BLOOD CELL COUNT(AUTO) 3.65 MIL/uL (4.00-5.50); RED CELL DISTRIBUTION WIDTH 13.2 % (11.0-15.5); WHITE BLOOD COUNT (AUTO) 11.6 K/uL (4.8-10.8)
[2024-12-25 12:12] VITALS: BP 152/77; PULSE 97; RESP 17; TEMP 97.7
[2024-12-25 12:14] LABS: APPEARANCE,URINE CLEAR (CLEAR); GLUCOSE, URINE (UA) NEGATIVE (NEGATIVE); LEUKOCYTE ESTERASE ,URINE 75 Leu/uL (NEGATIVE); NITRATE,URINE NEGATIVE (NEGATIVE); OCCULT BLOOD,URINE NEGATIVE (NEGATIVE)
[2024-12-25 12:17] LABS: ADD UA MICROSCOPIC YES
[2024-12-25 12:18] LABS: SQUAMOUS EPITHELIAL CELL,UR MOD /HPF (0-2)
--- NOTE | 2024-12-25 12:32 | EKG ---
[facility] Test Date: 2024-12-25 Test Time: 12:53:43 Pat Name: ARISTEO PASCUAL Department: [facility] Room: Gender: F Apprentice Technician: [id number] : 1950 Requested By: ANA SAMSON Order Number: [id number] Reading MD: Lindsey Singleton Measurements Intervals [place] Rate: 87 P: 49 VT: 200 QRS: -49 QRSD: 92 T: 29 QT: 384 QTc: 462 Interpretive Statements Sinus rhythm LAD, consider left anterior fascicular block Probable lateral infarct, old Compared to ECG 03/17/2024 02:59:27 Sinus tachycardia no longer present Myocardial infarct finding still present Electronically Signed On 12-25-2024 17:16:40 [employer] by Lindsey Singleton Please click the below link to view image of tracing.
--- NOTE | 2024-12-25 14:00 | NUR ---
IS INTAL DONE BY SONY
--- NOTE | 2024-12-25 15:22 | NUR ---
RE: EKG REPORTED EKG RESULTS TO DR ROLLINS, NO NEW ORDERS RECEIVED.
--- NOTE | 2024-12-25 15:50 | NUR ---
RE: LABS REPORTED UA RESULTS TO DR SAMSON AND WBC 11.6. PATIENT ASYMPTOMATIC. NO NEW ORDERS RECEIVED. (PENDING URINE CX RESULTS)
[~2024-12-26] VITALS: Ht 144.8 cm; Wt 58.8 kg
[2024-12-26] VITALS (27 sets, daily range): BP systolic 102–137; BP diastolic 52–79; PULSE 64–84; RESP 16–22; TEMP 96.7–97.7; O2SAT 97
[~2024-12-26 06:26] MED LIST changes: -AMOX-426 PO; +ASPI-1005 PO; +CALC-1219 PO; +CARV12.511 PO; -CARV6.25 PO; +CYAN1TAB44 PO; +FERR236T3 PO; -HYDR200T82 PO; -IRON1CAP32 PO; -LACT1CAP78 PO; +LEFL10TA19 PO; -LEFL20TA22 PO; +MELO-108 PO; -MELO10CA3 PO; -ONDA-104 PO; +ONE A DAY PO; +PANT40TA54 PO; +PSYL0.4C2 PO; -TRAM50TA4 PO
[2024-12-26] MEDS: LACTATED RINGERS 1000ML 1,000 ML IV ONE (06:28)
[2024-12-26] MEDS ORDERED: TRANEXAMIC ACID 1000MG/10ML ONE (06:38)
[2024-12-26] MEDS ORDERED: VANCOMYCIN 500MG+NS 100ML 100 ML IV ONE (06:39)
[2024-12-26] MEDS: SUGAMMADEX SODIUM 200 MG/2 ML VIAL IV ONE (07:07)
[2024-12-26] MEDS ORDERED: SUCCINYLCHOLINE CHLORIDE 20 MG/ML 10 ML VIAL ONE (07:11)
[2024-12-26] MEDS ORDERED: LIDOCAINE PF 100MG/5ML (2%) SYRINGE 5ML ONE (07:11)
[2024-12-26] MEDS ORDERED: MIDAZOLAM HCL 1 MG/ML 2ML VIAL ONE (07:12)
[2024-12-26] MEDS: TRANEXAMIC ACID 1000MG/10ML IV ONE (07:24)
[2024-12-26] MEDS ORDERED: PROMETHAZINE HCL 25 MG/ML 1ML AMPULE IM PRN (07:30)
[2024-12-26] MEDS: VANCOMYCIN 500MG VIAL IJ ONE (08:59)
--- NOTE | 2024-12-26 11:49 | OP ---
Operative Note: DATE OF PROCEDURE: 12/26/24 SURGEON: ANA SAMSON MD EX CHEF: [Belen Collado CFA's] ANESTHESIA: [Anesthesia plus regional block] ANESTHESIOLOGIST/CARD BOXER: [Jesus Brasher CARD BOXER] PREOPERATIVE DIAGNOSIS: [LEFT KNEE OSTEOARTHRITIS] POSTOPERATIVE DIAGNOSIS: [SAME] IMPLANTS: [Biomet vanguard. Femur Left 60 PS. Tibia 67 fixed cruciate. Tibial liner by 63/67 PS plus. Patella size31 x asymmetric. ] PROCEDURE: [Complex left total knee arthroplasty] ESTIMATED BLOOD LOSS: [100 mL] INDICATIONS: [The patient is a 74-year-old female with a long history of osteoarthritis to both knees that has been treated in the past conservatively with no improvement. The patient presented to our office in a wheelchair with a 30 severe valgus deformity and flexion contracture of the left knee and less severe in the right. The patient also has a flexion contracture but she was able to walk with the use of the walker indoors. The patient is brought to the operating room for a left total knee arthroplasty, procedure was explained to the patient, risks, benefits and possible complications and agreed to sign the consent form.] DESCRIPTION OF PROCEDURE: [After adequate general anesthesia was achieved and regional block obtained the left lower extremity was prepped and draped in the usual manner previous placement of the tourniquet in the proximal thigh. The extremity was then elevated and exsanguinated with an Esmarch bandage and the tourniquet inflated to 250 mmHg the Esmarch band been then removed. With the knee in flexion a longitudinal incision was then made in the anterior aspect t hrough the skin followed by dissection of the subcutaneous tissue. A bone infusion needle was then inserted just medial to the tibial tuberosity and through this needle we injected into the bone a solution of normal saline 50 mL mixed with 500 mg of vancomycin. The needle was removed. A paramedian approach was then made with the Bovie cautery cutting through the quadriceps tendon, medial patellar retinaculum and patellar tendon retinaculum. The retropatellar tendon fat was then excised and the soft tissue elements of the tibia were elevated subperiosteally and retractors were applied medially and laterally, previous exam of the knee that revealed the patient had significant tightness laterally as well as significant bone wear especially in the tibia and extreme laxity medially. The synovial tissue which was very thickened was then excised from the medial and lateral gutters as well as the suprapatellar area. The anterior and posterior cruciate ligaments were absent With the use of a drill a starting hole was made in the distal femur entering the intramedullary canal and then after removal of the drill an intramedullary guide was inserted with a 5 degree valgus block that touched the distal femur and to this the distal femoral cutting guide was then applied anteriorly and was secured to the distal femur with the use of pins. The intramedullary guide was then removed and with the use of the oscillating saw we proceeded to resect the distal femur removing the fragments and the guide. The femoral sizer was then applied distally and drill holes were made removing the sizer and the 4-in-1 cutting block was then inserted and the anterior, posterior and chamfer cuts were made removing the fragments and the block. The PS cutting guide was then inserted and the intercondylar cut was made removing the fragment and the guide. The posterior cruciate ligament retractor was then inserted posterior to the tibia and this was brought forward proceeding then to apply the external tibial alignment guide and secured the proximal cutting guide to the tibia with the use of pins. With the use of the oscillating saw the proximal cut to the tibia tibia was made. The bone fragment was removed and the trial tibia plate was chosen. At this point the reaining meniscal tissue was removed sharply and the trial components were then inserted at the femur and tibia with a trial tibial liner bringing the knee into extension noticing that the patient had still a very significant flexion contracture and for this reason the femur was recut two more times with a we were able to extend the knee poorly with a 10 mm liner noticing that it was extremely tight laterally and very loose medially. At this point we proceeded then to release 1st the popliteus tendon subperiosteally from its insertion, and then using a pie crust technique we proceeded to release the iliotibial band, which provided better extension but not satisfactory. We then proceeded to remove the components and flex the knee proceeded then to elevate subperiosteally the posterior capsule all the way to the shaft and finally we release the proximal insertion of the lateral collateral ligament subperiostea lly being now able to open the lateral joint line and after applying a 14 mm constrained liner obtaining a very stable knee in flexion, extension and with valgus and varus stress. The knee was maintained in extension and the patella was then addressed proceeding to measure its thickness and then with the use of the oscillating saw we removed eight mm from the articular surface and restored the height with application of a trial component after 3 peg holes were made. The patellofemoral ligament was removed and then the patellofemoral tracking was checked noticing to be normal. At this moment all the components were removed, the tibia after the metaphyseal defect was created and while cement was being mixed on the back table we proceeded to irrigate the joint with antibiotic solution and then cover the entry to the femoral canal with a bone plug. Once the cement was ready we proceeded to apply it first to the tibia surface inserting the final component and then to the femoral surface and inserted the final component removing the excess cement and then applying a trial liner bringing the knee into extension for compression. Then we proceeded to irrigate the patella surface and dried it applying then bone cement and the final patellar component was inserted and was secured with application of a clamp. The joint was irrigated with a warm diluted Betadine solution while the cement dried followed by irrigation with antibiotic solution. The trial liner was removed as well as the patellar clamp and we proceeded then to irrigate the posterior aspect of the joint to remove all the remaining debris and the final tibial liner was inserted and locked against the tibia. The range of motion was checked and noticed to be adequate with full extension and flexion, no laxity in valgus or varus stress and with adequate patellofemoral tracking. The patient had no anterior or posterior drawer. The tourniquet was then deflated and this was followed by hemostasis and the wound was then closed with approximation of the quadriceps tendon, patellar retinaculum and patellar tendon retinaculum with #1 Vicryl close stitches alternating with #1 Ethibond stitches, and closure of the subcutaneous tissue with 2-0 Monocryl inverted stitches and the skin was closed with 3-0 Monocryl subcuticularly. The wound was covered with a suction dressing followed by application of an Fahad bandage for compression and the drapes were then removed transferring the patient to the hospital bed and taken to recovery room for follow-up by anesthesia. There were no complications during the procedure.] ANA SAMSON MD Dec 26, 2024 11:49
[2024-12-26] MEDS ORDERED: CALCIUM CARB 500MG PO PRN (12:00)
[2024-12-26] MEDS ORDERED: PoTASSium chl 10% ELIXIR 20MEQ 20 MEQ/15 ML UDCUP PO PRN (12:00)
[2024-12-26] MEDS: 0.9%NACL 1000ML 1,000 ML IV SCH (12:00)
[2024-12-26] MEDS ORDERED: PoTASSium chloRIDE 20MEQ ER 20 MEQ ERTAB PO PRN (12:00)
[2024-12-26] MEDS: TRANEXAMIC ACID 1000MG/10ML ONE (12:35)
--- NOTE | 2024-12-26 17:23 | NUR ---
Attempted PT eval at this time. Pt is asleep and daughter is present, she reports patient has not woken up since shes been out of recovery. PT provided SCDs and turned on, places ice pack, brought ice water and emesis bag. Education provided to daughter on POC, DC plan, fall precautions and medication. At this time patient wakes up to name and falls back to sleep. No pain noted with placement of SCDs. Pt wakes up again and asks " have they done surgery yet?" Pt reoriented. Daughter will attempt to feed patient and PT will attempt again if appropriate.
--- NOTE | 2024-12-26 19:15 | NUR ---
assessment/teaching patient awake, alert, ox3, no sob, no c/o pAIN AT THIS TIME, ENCOURAGE DEEP BREATHING EXERCISES, PATIENT PERFORMING IS AT THIS TIME WITH MAXIMUM VOLUME INSPIRATION OF 1000, TEACH PATIENT PLAN OF CARE, PAIN MANAGEMENT AND EXPECTED OUTCOME,PATIENT VERBALIZES UNDERSTANDING VIA TEACH BACK
[2024-12-26] MEDS: FAMOTIDINE 20MG TAB PO SCH (20:04)
[2024-12-26] MEDS: ASPIRIN 81 MG EC TAB PO SCH (20:05)
[2024-12-27] VITALS (7 sets, daily range): BP systolic 119–143; BP diastolic 50–79; PULSE 76–92; RESP 17–19; TEMP 97.6–98.6; O2SAT 96
[2024-12-27 04:06] LABS: NUCLEATED RED BLOOD CELLS 0.0 % (0.0-0.19); PLATELET COUNT (AUTO) 217.0 K/uL (130-400); RED BLOOD CELL COUNT(AUTO) 2.79 MIL/uL (4.00-5.50); RED CELL DISTRIBUTION WIDTH 13.2 % (11.0-15.5); WHITE BLOOD COUNT (AUTO) 14.1 K/uL (4.8-10.8)
[2024-12-27 04:19] LABS: CREATININE 1.2 mg/dL (0.5-1.0); GLOMERULAR FILTR. RATE CALC 48.0 mL/min (>90); GLUCOSE,RANDOM 83.0 mg/dL (70-105); SODIUM SERUM 142.0 mmol/L (136-145); UREA NITROGEN, BLOOD 22.0 mg/dL (7-18)
[2024-12-27] MEDS: HYDROcodone/APAP 5/325 1 TAB TABLET PO PRN (06:36)
[2024-12-27] MEDS ORDERED: ASPIRIN 81MG CHEW TAB PO SCH (09:00)
[2024-12-27] MEDS: PSYLLIUM SEED 1 EACH PACKET PO SCH (09:47)
[2024-12-27] MEDS: PoTASSium chloRIDE 20MEQ ER 20 MEQ ERTAB PO SCH (09:49)
[2024-12-27] MEDS: FERROUS GLUCONATE 324MG TABLET.DR PO SCH (09:50)
[2024-12-27] MEDS: FERROUS FUMARATE 324 MG TABLET PO PRN (09:51)
[2024-12-27] MEDS: CA 600MG+VIT D 400 UNIT TAB 1 TAB TABLET PO SCH (09:51)
--- NOTE | 2024-12-27 11:30 | NUR ---
[facility]ERLEY CM MET WITH PT THIS MORNING, INITIAL ASSESSMENT DONE. PATIENT IS SEMI-INDEPENDENT PRIOR TO SURGERY, LIVES AT HOME WITH HER DAUGHTER. AT HOME PATIENT HAS A STANDARD WALKER, WHEELCHAIR, SHOWER CHAIR, PROVIDER 5.5 MON/MON//SAT, 7HRS ON MONDAY, AND 2HRS ON MONDAY. DENIES ANY OTHER EQUIPMENT/SERVICES. FEELS SAFE TO GO BACK HOME, DAUGHTER ABLE TO ASSIST WITH TRANSPORTATION AND NEEDS NECESSARY. DISCUSSED MD RECOMMENDATIONS FOR SHORT TERM REHAB AT SNF, PT REQUESTING [facility], CONSENT SIGNED [facility]. [facility] ONCE APPROVED. CM TO CONTINUE TO FOLLOW UP.
--- NOTE | 2024-12-27 14:49 | PN ---
One. Status post left total knee arthroplasty. Vital signs stable, the patient is afebrile. Blood pressure adequately maintained. Laboratory has been reviewed. The patient did poorly as expected with physical therapy today just ambulating in the room. Case management is arranging transferred to [facility] rehab. On examination the patient is awake, alert and oriented x3. She seems to be very happy and reports that her pain is adequately controlled with the medication. I have explained to the patient the findings of the difficult operation that she had and the correction of the extremity which has please her significantly. On physical exam she is alert and oriented x3. Her respiratory effort is normal. She is in no distress. Examination of her lower extremity shows a mild effusion present in the knee joint the dressing is intact and there is no signs of bleeding. The alignment of the joint is adequate and the leg is kept much better stretch the preop but still with some tightness of the hamstrings. The distal neurovascular exam is normal. Assessment: Status post left total knee arthroplasty. Plan: Continue with the physical therapy and rehabilitation and await for the authorization for the patient to go to [facility] and rehab. Vitals/Labs Vital Signs Date Time Temp Pulse Resp B/P (MAP) Pulse Ox O2 Delivery O2 Flow Rate FiO2 12/27/24 12:07 98.1 85 18 137/68 94 Room Air 12/27/24 08:00 0 21 Laboratory Tests 12/27/24 03:54 Medications Current Medications Cefazolin Sodium 2 gm STK-MED ONCE .ROUTE; Start 12/26/24 at 06:28; Stop 12/26/24 at 06:28; Status DC Lactated Ringer's 1,000 ml @ As Directed STK-MED ONCE IV; Start 12/26/24 at 06:28; Stop 12/26/24 at 06:28; Status DC Tranexamic Acid 1,000 mg STK-MED ONCE .ROUTE; Start 12/26/24 at 06:38; Stop 12/26/24 at 06:38; Status DC Cefazolin Sodium 1 gm STK-MED ONCE .ROUTE; Start 12/26/24 at 06:38; Stop 12/26/24 at 06:38; Status DC Vancomycin HCl 100 ml @ As Directed STK-MED ONCE IV; Start 12/26/24 at 06:39; Stop 12/26/24 at 06:39; Status DC Acetaminophen 100 ml @ As Directed STK-MED ONCE .ROUTE; Start 12/26/24 at 07:07; Stop 12/26/24 at 07:07; Status DC Lidocaine HCl 100 mg STK-MED ONCE .ROUTE; Start 12/26/24 at 07:11; Stop 12/26/24 at 07:11; Status DC Phenylephrine HCl 10 mg STK-MED ONCE IV; Start 12/26/24 at 07:11; Stop 12/26/24 at 07:11; Status DC Ondansetron HCl 4 mg STK-MED ONCE .ROUTE; Start 12/26/24 at 07:11; Stop 12/26/24 at 07:11; Status DC Ropivacaine 150 mg STK-MED ONCE .ROUTE; Start 12/26/24 at 07:11; Stop 12/26/24 at 07:11; Status DC Succinylcholine Chloride 200 mg STK-MED ONCE .ROUTE; Start 12/26/24 at 07:11; Stop 12/26/24 at 07:11; Status DC Propofol 200 mg STK-MED ONCE IV; Start 12/26/24 at 07:11; Stop 12/26/24 at 07:12; Status DC Dexamethasone Sodium Phosphate 10 mg STK-MED ONCE .ROUTE; Start 12/26/24 at 07:11; Stop 12/26/24 at 07:12; Status DC Ephedrine Sulfate 50 mg STK-MED ONCE .ROUTE; Start 12/26/24 at 07:12; Stop 12/26/24 at 07:12; Status DC Midazolam HCl 2 mg STK-MED ONCE .ROUTE; Start 12/26/24 at 07:12; Stop 12/26/24 at 07:12; Status DC Ketamine HCl 50 mg STK-MED ONCE .ROUTE; Start 12/26/24 at 07:12; Stop 12/26/24 at 07:12; Status DC Rocuronium [place] 50 mg STK-MED ONCE .ROUTE; Start 12/26/24 at 07:12; Stop 12/26/24 at 07:12; Status DC Fentanyl Citrate 100 mcg STK-MED ONCE .ROUTE; Start 12/26/24 at 07:12; Stop 12/26/24 at 07:12; Status DC Ropivacaine 150 mg STK-MED ONCE .ROUTE; Start 12/26/24 at 07:22; Stop 12/26/24 at 07:22; Status DC Ondansetron HCl 4 mg AD PRN IVP; Start 12/26/24 at 07:30; Stop 12/26/24 at 13:01; Status DC Metoclopramide HCl 10 mg AD PRN IVP; Start 12/26/24 at 07:30; Stop 12/26/24 at 13:01; Status DC Promethazine HCl 25 mg AD PRN IM; Start 12/26/24 at 07:30; Stop 12/26/24 at 13:01; Status DC Ketorolac Tromethamine 15 mg AD PRN IV; Start 12/26/24 at 07:30; Stop 12/26/24 at 16:00; Status DC Morphine Sulfate 2 mg AD PRN IVP; Start 12/26/24 at 07:30; Stop 12/26/24 at 13:01; Status DC Fentanyl Citrate 25 mcg Q5MIN PRN IVP Last administered on 12/26/24at 12:36; Start 12/26/24 at 07:30; Stop 12/26/24 at 13:01; Status DC Naloxone HCl 0.1 mg AD PRN IVP; Start 12/26/24 at 07:30; Stop 12/26/24 at 13:01; Status DC Cefazolin Sodium 2 gm STK-MED ONCE IVPB Last administered on 12/26/24at 07:23; Start 12/26/24 at 07:23; Stop 12/26/24 at 09:19; Status DC Tranexamic Acid 1,000 mg STK-MED ONCE IV Last administered on 12/26/24at 07:24; Start 12/26/24 at 07:24; Stop 12/26/24 at 09:19; Status DC Vancomycin HCl 500 mg STK-MED ONCE IJ Last administered on 12/26/24at 08:59; Start 12/26/24 at 08:59; Stop 12/26/24 at 09:19; Status DC Cefazolin Sodium 3 gm STK-MED ONCE IVPB Last administered on 12/26/24at 08:49; Start 12/26/24 at 08:49; Stop 12/26/24 at 09:19; Status DC Fentanyl Citrate 100 mcg STK-MED ONCE .ROUTE; Start 12/26/24 at 11:36; Stop 12/26/24 at 11:35; Status DC Sodium Chloride 1,000 ml @ 80 mls/hr [id number] IV Last administered on 12/26/24at 23:50; Start 12/26/24 at 12:00; Stop 12/27/24 at 11:59; Status DC Polyethylene Glycol 17 gm DAILY PO Last administered on 12/27/24at 09:49; Start 12/27/24 at 09:00; Stop 01/26/25 at 08:59 Bisacodyl 10 mg DAILY PRN RC; Start 12/29/24 at 12:00; Stop 01/28/25 at 11:59 Ketorolac Tromethamine 15 mg Q6H PRN IV Last administered on 12/27/24at 09:52; Start 12/26/24 at 12:00; Stop 12/31/24 at 11:59 Famotidine 20 mg Q48H PO Last administered on 12/26/24at 20:04; Start 12/26/24 at 21:00; Stop 12/27/24 at 06:44; Status DC Ferrous Fumarate 324 mg DAILY PRN PO Last administered on 12/27/24at 09:51; Start 12/26/24 at 12:00; Stop 01/25/25 at 11:59 Temazepam 15 mg HS PRN PO; Start 12/26/24 at 12:00; Stop 01/25/25 at 11:59 Ondansetron HCl 4 mg Q6H PRN IVP; Start 12/26/24 at 12:00; Stop 01/25/25 at 11:59 Calcium Carbonate 500 mg Q12H PRN PO; Start 12/26/24 at 12:00; Stop 01/25/25 at 11:59 Diphenhydramine HCl 25 mg Q6H PRN IVP; Start 12/26/24 at 12:00; Stop 01/25/25 at 11:59 Cefazolin Sodium 2 gm Q8H IVP Last administered on 12/27/24at 00:31; Start 12/26/24 at 17:00; Stop 12/27/24 at 01:01; Status DC Potassium Chloride 100 ml @ 100 mls/hr AD PRN IV; Start 12/26/24 at 12:00; Stop 01/25/25 at 11:59 Potassium Chloride 20 meq AD PRN PO; Start 12/26/24 at 12:00; Stop 01/25/25 at 11:59 Potassium Chloride 20 meq AD PRN PO; Start 12/26/24 at 12:00; Stop 01/25/25 at 11:59 Acetaminophen/ Hydrocodone Bitart Q4H PRN PO Last administered on 12/27/24at 12:15; Start 12/26/24 at 12:00; Stop 12/31/24 at 11:59 Aspirin 81 mg BID PO Last administered on 12/27/24at 09:50; Start 12/26/24 at 21:00; Stop 01/25/25 at 20:59 Tranexamic Acid 1,000 mg STK-MED ONCE .ROUTE Last administered on 12/26/24at 12:35; Start 12/26/24 at 12:10; Stop 12/26/24 at 12:10; Status DC Fentanyl Citrate 100 mcg STK-MED ONCE .ROUTE; Start 12/26/24 at 12:33; Stop 12/26/24 at 12:33; Status DC Aspirin 81 mg DAILY PO; Start 12/27/24 at 09:00; Stop 12/27/24 at 06:41; Status DC Atorvastatin Calcium 20 mg HS PO Last administered on 12/26/24at 20:05; Start 12/26/24 at 21:00; Stop 12/27/24 at 06:40; Status DC Carvedilol 12.5 mg BID PO Last administered on 12/27/24at 09:50; Start 12/26/24 at 21:00; Stop 01/25/25 at 20:59 Hydroxychloroquine Sulfate 200 mg BID PO Last administered on 12/27/24at 09:50; Start 12/26/24 at 21:00; Stop 01/09/25 at 20:59 Pantoprazole Sodium 40 mg ACBKFST PO Last administered on 12/27/24at 06:33; Start 12/27/24 at 07:30; Stop 01/26/25 at 07:29 Potassium Chloride 20 meq DAILY PO Last administered on 12/27/24at 09:49; Start 12/27/24 at 09:00; Stop 01/26/25 at 08:59 Calcium/Vitamin D 1 tab AM PO Last administered on 12/27/24at 09:51; Start 12/27/24 at 09:00; Stop 01/26/25 at 08:59 Folic Acid 1 mg AM PO Last administered on 12/27/24at 09:50; Start 12/27/24 at 09:00; Stop 01/26/25 at 08:59 Ferrous Gluconate 324 mg AM PO Last administered on 12/27/24at 09:50; Start 12/27/24 at 09:00; Stop 01/26/25 at 08:59 Home Med (Leflunomide 10 MG) AM PO; Start 12/27/24 at 09:00; Stop 01/26/25 at 08:59 Psyllium Hydrophilic Mucilloid 1 tbs AM PO Last administered on 12/27/24at 09:47; Start 12/27/24 at 09:00; Stop 01/26/25 at 08:59 Atorvastatin Calcium 20 mg HS PO; Start 12/27/24 at 21:00; Stop 01/25/25 at 20:59 ANA SAMSON MD Dec 27, 2024 14:49
--- NOTE | 2024-12-27 15:03 | NUR ---
late PT note entered again for PT eval yesterday. Computer errors. Pt was initally unable to wake up, then later participated
[2024-12-28] VITALS (8 sets, daily range): BP systolic 97–125; BP diastolic 54–76; PULSE 74–89; RESP 17–18; TEMP 97.9–98.7; O2SAT 93–94
--- NOTE | 2024-12-28 13:25 | NUR ---
Auth Escalation- Approved Called Briseyda at . SPoke with rep Fitz. Per Fitz, auth showing patient is currently at [facility]. Informed patient is at [facility]. Fitz corrected auth to show patient at [facility] as of 12/26. Fitz placed this CM on hold to speak with a CM on their side. Per Fitz, auth approved for [facility] starting 12/28/24-12/31/24. Ref#: [id number] with [facility] AUth#: [id number]. This CM securely e-mailed the [facility] admission team with the above information and notified CM to please follow up with rep for official acceptance.
--- NOTE | 2024-12-28 15:43 | PN ---
Postop day 2. Status post left total knee arthroplasty. The vital signs has been stable, afebrile. The patient has a slowly progress with rehabilitation walking a few steps in the room. Her pain level is under adequate control. The patient is in good spirits, awake alert and oriented. The dressing is intact maintaining a slight flexion contracture which is educated about and they have remind her about trying to keep the leg straight as much as possible. The calf is soft and nontender. The distal neurovascular exam is normal. Assessment: Status post left total knee arthroplasty. Plan: Continue physical therapy and rehabilitation, pain management and we are awaiting authorization to transferred to nursing rehab. Vitals/Labs Vital Signs Date Time Temp Pulse Resp B/P (MAP) Pulse Ox O2 Delivery O2 Flow Rate FiO2 12/28/24 15:15 98.2 74 18 102/65 95 Room Air 12/28/24 08:00 0 21 Medications Current Medications Cefazolin Sodium 2 gm STK-MED ONCE .ROUTE; Start 12/26/24 at 06:28; Stop 12/26/24 at 06:28; Status DC Lactated Ringer's 1,000 ml @ As Directed STK-MED ONCE IV; Start 12/26/24 at 06:28; Stop 12/26/24 at 06:28; Status DC Tranexamic Acid 1,000 mg STK-MED ONCE .ROUTE; Start 12/26/24 at 06:38; Stop 12/26/24 at 06:38; Status DC Cefazolin Sodium 1 gm STK-MED ONCE .ROUTE; Start 12/26/24 at 06:38; Stop 12/26/24 at 06:38; Status DC Vancomycin HCl 100 ml @ As Directed STK-MED ONCE IV; Start 12/26/24 at 06:39; Stop 12/26/24 at 06:39; Status DC Acetaminophen 100 ml @ As Directed STK-MED ONCE .ROUTE; Start 12/26/24 at 07:07; Stop 12/26/24 at 07:07; Status DC Lidocaine HCl 100 mg STK-MED ONCE .ROUTE; Start 12/26/24 at 07:11; Stop 12/26/24 at 07:11; Status DC Phenylephrine HCl 10 mg STK-MED ONCE IV; Start 12/26/24 at 07:11; Stop 12/26/24 at 07:11; Status DC Ondansetron HCl 4 mg STK-MED ONCE .ROUTE; Start 12/26/24 at 07:11; Stop 12/26/24 at 07:11; Status DC Ropivacaine 150 mg STK-MED ONCE .ROUTE; Start 12/26/24 at 07:11; Stop 12/26/24 at 07:11; Status DC Succinylcholine Chloride 200 mg STK-MED ONCE .ROUTE; Start 12/26/24 at 07:11; Stop 12/26/24 at 07:11; Status DC Propofol 200 mg STK-MED ONCE IV; Start 12/26/24 at 07:11; Stop 12/26/24 at 07:12; Status DC Dexamethasone Sodium Phosphate 10 mg STK-MED ONCE .ROUTE; Start 12/26/24 at 07:11; Stop 12/26/24 at 07:12; Status DC Ephedrine Sulfate 50 mg STK-MED ONCE .ROUTE; Start 12/26/24 at 07:12; Stop 12/26/24 at 07:12; Status DC Midazolam HCl 2 mg STK-MED ONCE .ROUTE; Start 12/26/24 at 07:12; Stop 12/26/24 at 07:12; Status DC Ketamine HCl 50 mg STK-MED ONCE .ROUTE; Start 12/26/24 at 07:12; Stop 12/26/24 at 07:12; Status DC Rocuronium [place] 50 mg STK-MED ONCE .ROUTE; Start 12/26/24 at 07:12; Stop 12/26/24 at 07:12; Status DC Fentanyl Citrate 100 mcg STK-MED ONCE .ROUTE; Start 12/26/24 at 07:12; Stop 12/26/24 at 07:12; Status DC Ropivacaine 150 mg STK-MED ONCE .ROUTE; Start 12/26/24 at 07:22; Stop 12/26/24 at 07:22; Status DC Ondansetron HCl 4 mg AD PRN IVP; Start 12/26/24 at 07:30; Stop 12/26/24 at 13:01; Status DC Metoclopramide HCl 10 mg AD PRN IVP; Start 12/26/24 at 07:30; Stop 12/26/24 at 13:01; Status DC Promethazine HCl 25 mg AD PRN IM; Start 12/26/24 at 07:30; Stop 12/26/24 at 13:01; Status DC Ketorolac Tromethamine 15 mg AD PRN IV; Start 12/26/24 at 07:30; Stop 12/26/24 at 16:00; Status DC Morphine Sulfate 2 mg AD PRN IVP; Start 12/26/24 at 07:30; Stop 12/26/24 at 13:01; Status DC Fentanyl Citrate 25 mcg Q5MIN PRN IVP Last administered on 12/26/24at 12:36; Start 12/26/24 at 07:30; Stop 12/26/24 at 13:01; Status DC Naloxone HCl 0.1 mg AD PRN IVP; Start 12/26/24 at 07:30; Stop 12/26/24 at 13:01; Status DC Cefazolin Sodium 2 gm STK-MED ONCE IVPB Last administered on 12/26/24at 07:23; Start 12/26/24 at 07:23; Stop 12/26/24 at 09:19; Status DC Tranexamic Acid 1,000 mg STK-MED ONCE IV Last administered on 12/26/24at 07:24; Start 12/26/24 at 07:24; Stop 12/26/24 at 09:19; Status DC Vancomycin HCl 500 mg STK-MED ONCE IJ Last administered on 12/26/24at 08:59; Start 12/26/24 at 08:59; Stop 12/26/24 at 09:19; Status DC Cefazolin Sodium 3 gm STK-MED ONCE IVPB Last administered on 12/26/24at 08:49; Start 12/26/24 at 08:49; Stop 12/26/24 at 09:19; Status DC Fentanyl Citrate 100 mcg STK-MED ONCE .ROUTE; Start 12/26/24 at 11:36; Stop 12/26/24 at 11:35; Status DC Sodium Chloride 1,000 ml @ 80 mls/hr [id number] IV Last administered on 12/26/24at 23:50; Start 12/26/24 at 12:00; Stop 12/27/24 at 11:59; Status DC Polyethylene Glycol 17 gm DAILY PO Last administered on 12/28/24at 09:30; Start 12/27/24 at 09:00; Stop 01/26/25 at 08:59 Bisacodyl 10 mg DAILY PRN RC; Start 12/29/24 at 12:00; Stop 01/28/25 at 11:59 Ketorolac Tromethamine 15 mg Q6H PRN IV Last administered on 12/28/24at 10:51; Start 12/26/24 at 12:00; Stop 12/31/24 at 11:59 Famotidine 20 mg Q48H PO Last administered on 12/26/24at 20:04; Start 12/26/24 at 21:00; Stop 12/27/24 at 06:44; Status DC Ferrous Fumarate 324 mg DAILY PRN PO Last administered on 12/27/24at 09:51; Start 12/26/24 at 12:00; Stop 01/25/25 at 11:59 Temazepam 15 mg HS PRN PO; Start 12/26/24 at 12:00; Stop 01/25/25 at 11:59 Ondansetron HCl 4 mg Q6H PRN IVP; Start 12/26/24 at 12:00; Stop 01/25/25 at 11:59 Calcium Carbonate 500 mg Q12H PRN PO; Start 12/26/24 at 12:00; Stop 01/25/25 at 11:59 Diphenhydramine HCl 25 mg Q6H PRN IVP; Start 12/26/24 at 12:00; Stop 01/25/25 at 11:59 Cefazolin Sodium 2 gm Q8H IVP Last administered on 12/27/24at 00:31; Start 12/26/24 at 17:00; Stop 12/27/24 at 01:01; Status DC Potassium Chloride 100 ml @ 100 mls/hr AD PRN IV; Start 12/26/24 at 12:00; Stop 01/25/25 at 11:59 Potassium Chloride 20 meq AD PRN PO; Start 12/26/24 at 12:00; Stop 01/25/25 at 11:59 Potassium Chloride 20 meq AD PRN PO; Start 12/26/24 at 12:00; Stop 01/25/25 at 11:59 Acetaminophen/ Hydrocodone Bitart Q4H PRN PO Last administered on 12/28/24at 09:26; Start 12/26/24 at 12:00; Stop 12/31/24 at 11:59 Aspirin 81 mg BID PO Last administered on 12/28/24at 09:24; Start 12/26/24 at 21:00; Stop 01/25/25 at 20:59 Tranexamic Acid 1,000 mg STK-MED ONCE .ROUTE Last administered on 12/26/24at 12:35; Start 12/26/24 at 12:10; Stop 12/26/24 at 12:10; Status DC Fentanyl Citrate 100 mcg STK-MED ONCE .ROUTE; Start 12/26/24 at 12:33; Stop 12/26/24 at 12:33; Status DC Aspirin 81 mg DAILY PO; Start 12/27/24 at 09:00; Stop 12/27/24 at 06:41; Status DC Atorvastatin Calcium 20 mg HS PO Last administered on 12/26/24at 20:05; Start 12/26/24 at 21:00; Stop 12/27/24 at 06:40; Status DC Carvedilol 12.5 mg BID PO Last administered on 12/28/24at 09:24; Start 12/26/24 at 21:00; Stop 01/25/25 at 20:59 Hydroxychloroquine Sulfate 200 mg BID PO Last administered on 12/28/24at 09:25; Start 12/26/24 at 21:00; Stop 01/09/25 at 20:59 Pantoprazole Sodium 40 mg ACBKFST PO Last administered on 12/28/24at 06:18; Start 12/27/24 at 07:30; Stop 01/26/25 at 07:29 Potassium Chloride 20 meq DAILY PO Last administered on 12/28/24at 09:25; Start 12/27/24 at 09:00; Stop 01/26/25 at 08:59 Calcium/Vitamin D 1 tab AM PO Last administered on 12/28/24at 09:24; Start 12/27/24 at 09:00; Stop 01/26/25 at 08:59 Folic Acid 1 mg AM PO Last administered on 12/28/24at 09:25; Start 12/27/24 at 09:00; Stop 01/26/25 at 08:59 Ferrous Gluconate 324 mg AM PO Last administered on 12/28/24at 09:24; Start 12/27/24 at 09:00; Stop 01/26/25 at 08:59 Home Med (Leflunomide 10 MG) AM PO; Start 12/27/24 at 09:00; Stop 01/26/25 at 08:59 Psyllium Hydrophilic Mucilloid 1 tbs AM PO Last administered on 12/28/24at 09:30; Start 12/27/24 at 09:00; Stop 01/26/25 at 08:59 Atorvastatin Calcium 20 mg HS PO Last administered on 12/27/24at 21:32; Start 02/27/24 at 21:00; Stop 01/25/25 at 20:59 Benzonatate 100 mg Q8H PRN PO; Start 12/28/24 at 07:30; Stop 01/27/25 at 07:29 ANA SAMSON MD Dec 28, 2024 15:43
--- NOTE | 2024-12-28 21:01 | PN ---
PROGRESS NOTE PROGRESS NOTE DATE OF PROGRESS NOTE: 12/28/24 SUBJECTIVE: Status post surgery VITAL SIGNS Vital Signs Date Time Temp Pulse Resp B/P (MAP) Pulse Ox O2 Delivery O2 Flow Rate FiO2 12/28/24 20:00 98.8 80 18 97/54 93 Room Air 12/28/24 08:00 0 21 PHYSICAL EXAM: HEENT atraumatic normocephalic head Neck is supple Lungs are clear to auscultation percussion Heart was S1-S2 heard no murmur Extremities no pedal edema INPATIENT MEDS: Current Medications Medications Dose Ordered Sig/Riley Start Time Stop Time Status Last Admin Polyethylene Glycol 17 gm DAILY 12/27/24 09:00 01/26/25 08:59 12/28/24 09:30 Bisacodyl 10 mg DAILY PRN 12/29/24 12:00 01/28/25 11:59 Ketorolac Tromethamine 15 mg Q6H PRN 12/26/24 12:00 12/31/24 11:59 12/28/24 10:51 Ferrous Fumarate 324 mg DAILY PRN 12/26/24 12:00 01/25/25 11:59 12/27/24 09:51 Temazepam 15 mg HS PRN 12/26/24 12:00 01/25/25 11:59 Ondansetron HCl 4 mg Q6H PRN 12/26/24 12:00 01/25/25 11:59 Calcium Carbonate 500 mg Q12H PRN 12/26/24 12:00 01/25/25 11:59 Diphenhydramine HCl 25 mg Q6H PRN 12/26/24 12:00 01/25/25 11:59 Potassium Chloride 100 ml @ 100 mls/hr AD PRN 12/26/24 12:00 01/25/25 11:59 Potassium Chloride 20 meq AD PRN 12/26/24 12:00 01/25/25 11:59 Potassium Chloride 20 meq AD PRN 12/26/24 12:00 01/25/25 11:59 Acetaminophen/ Hydrocodone Bitart Q4H PRN 12/26/24 12:00 12/31/24 11:59 12/28/24 09:26 Aspirin 81 mg BID 12/26/24 21:00 01/25/25 20:59 12/28/24 09:24 Carvedilol 12.5 mg BID 12/26/24 21:00 01/25/25 20:59 12/28/24 09:24 Hydroxychloroquine Sulfate 200 mg BID 12/26/24 21:00 01/09/25 20:59 12/28/24 09:25 Pantoprazole Sodium 40 mg ACBKFST 12/27/24 07:30 01/26/25 07:29 12/28/24 06:18 Potassium Chloride 20 meq DAILY 12/27/24 09:00 01/26/25 08:59 12/28/24 09:25 Calcium/Vitamin D 1 tab AM 12/27/24 09:00 01/26/25 08:59 12/28/24 09:24 Folic Acid 1 mg AM 12/27/24 09:00 01/26/25 08:59 12/28/24 09:25 Ferrous Gluconate 324 mg AM 12/27/24 09:00 01/26/25 08:59 12/28/24 09:24 Home Med (Leflunomide 10 MG) AM 12/27/24 09:00 01/26/25 08:59 Psyllium Hydrophilic Mucilloid 1 tbs AM 12/27/24 09:00 01/26/25 08:59 12/28/24 09:30 Atorvastatin Calcium 20 mg HS 12/27/24 21:00 01/25/25 20:59 12/27/24 21:32 Benzonatate 100 mg Q8H PRN 12/28/24 07:30 01/27/25 07:29 PLAN: Hypertension stable Impaired fasting glucose stable DVT prophylaxis to continue discharge planning YESENIA BROWN MD Dec 28, 2024 21:01
[2024-12-29] VITALS: BP 130/70; PULSE 81; RESP 18; TEMP 98.3
[2024-12-29 04:00] VITALS: BP 118/60; PULSE 80; RESP 18; TEMP 98.3
[2024-12-29 08:00] VITALS: O2SAT 91
[2024-12-29 08:04] VITALS: BP 127/71; PULSE 89; RESP 18; TEMP 98.5
--- NOTE | 2024-12-29 10:20 | DS ---
DISCHARGE SUMMARY [Date of admission: 12/26/2024 Date of discharge: 12/29/2024 Final diagnosis: Left Knee osteoarthritis. Rheumatoid arthritis Surgical procedures: Complex left total Knee arthroplasty on Summary of History and Physical: The patient is a 74 year-old female very frail with history of severe arthrosis to the left knee secondary to osteoarthritis as well as rheumatoid arthritis that has been present for several years and has been treated conservatively with no longer adequate response to treatment. Over the years the patient has developed a severe valgus deformity and a flexion contracture being very difficult to ambulate, patient having significant limitations. The patient is being admitted for total knee arthroplasty. Previous medical history: Osteoarthritis, rheumatoid arthritis, GERD, hyperlipidemia Previous surgical history: Cholecystectomy Family history: RA Social history: Negative for use of tobacco or alcohol. Allergies: NKDA. Review of system: Negative on admission Hospital course: The patient was admitted and taken to the operating room for a total knee arthroplasty, procedure that was very complex but went uneventful. Her surgery required multiple ligamentous releases especially in the lateral aspect of the knee as well as a posterior capsular release Postoperatively the patient remained hemodynamically stable and afebrile. The patient received antibiotic and anticoagulation prophylaxis as per protocol. The patient was evaluated by physical therapy and started rehabilitation treatment with ambulation with the use of walker, which progress very slowly due to the chronic condition of the patient. She was weight bearing as tolerated, and had range of motion exercises and bed transfers. The patient was also evaluated by case management and arrangements were made for discharge. The patient tolerated diet well. On postop day #2 all the arrangements were completed and the patient was dismissed in the morning of postop day 3.. Condition on discharge: Fair Disposition: The patient will be dismissed to a long-term facility. Follow- up will be done at the office in 3 weeks. The patient is to continue with physical therapy and rehabilitation at long-term and be ambulatory with the use of a walker, weight bearing as tolerated. Physical therapy to concentrate on stretching exercises of the hamstrings to improve the extension of the knee. Continue taking pain medication as instructed as well as anticoagulation prophylaxis with baby aspirin twice a day. Continue with home medications also as instructed and continue with pre admission diet.] ] ANA SAMSON MD Dec 29, 2024 10:20
[2024-12-29] MEDS ORDERED: AEC81 PO (10:33)
[2024-12-29] MEDS ORDERED: HYDR-4060 PO (10:33)
[2024-12-29] MEDS: BENZONATATE 100 MG CAPSULE PO PRN (12:16)
--- NOTE | 2024-12-29 13:38 | NUR ---
PAIN REASSESSMENT AFTER ADMINISTRATION OF TORADOL FOR BREAKTHROUGH PAIN Patient verbalizes that pain has improved. States level is 5/10. Repositioned for comfort. Lights dimmed as patient expressed she would like to take a nap. Ice pack applied to left knee. Will reassess patient within 1 hour and provide appropriate intervention.
--- NOTE | 2024-12-29 14:42 | NUR ---
DISCARGE NOTE Discharge instructions, medications, follow up appointments and teaching performed with patient at bedside. IV and ID bands removed.
--- NOTE | 2024-12-29 15:00 | NUR ---
REPORT CALLED TO [facility] Receiving nurse, Lucas Márquez LVN received report. Medication reconciliation faxed to Facility to number provided by receiving nurse . Pending facility construction driver for transport of patient.
[2024-12-29 15:33] VITALS: BP 124/68; PULSE 69; RESP 18
--- NOTE | 2024-12-29 16:52 | NUR ---
[facility] MACHINE [employer]PERATORS ON UNIT TO TRANSPORT PATIENT TO FACILITY. Patient assisted into chair x 2 staff. Personal belongings packed and placed in patient personal bag. Items taken with patient in her lap.Facility hearse driver took patient to 1st floor via wheelchair to facility van for transport.
--- NOTE | 2024-12-30 20:11 | PN ---
PROGRESS NOTE PROGRESS NOTE DATE OF PROGRESS NOTE: 12/29/24 SUBJECTIVE: no new complaints VITAL SIGNS Vital Signs Date Time Temp Pulse Resp B/P (MAP) Pulse Ox O2 Delivery O2 Flow Rate FiO2 12/29/24 15:33 69 18 124/68 96 Room Air 12/29/24 08:04 98.4 12/29/24 08:00 0 21 PHYSICAL EXAM: HEENT atraumatic normocephalic head Neck is supple Lungs are clear to auscultation percussion Heart was S1-S2 heard no murmur Extremities no pedal edema PLAN: Hypertension stable Impaired fasting glucose stable DVT prophylaxis to continue discharge planning YESENIA BROWN MD Dec 30, 2024 20:11
== END 2024-12-29 16:50 ==
LOC: DAH 06:26 → DAHIP 06:27 → 4BH 14:00
PROVIDERS: ADMIT Orthopaedic Surgery; ATTEND Orthopaedic Surgery
DX: M17.12 Unilateral primary osteoarthritis, left knee (principal); M06.9 Rheumatoid arthritis, unspecified; E78.5 Hyperlipidemia, unspecified; M21.00 Valgus deformity, not elsewhere classified, unspecified site; M25.562 Pain in left knee; I10 Essential (primary) hypertension; K21.9 Gastro-esophageal reflux disease without esophagitis; Z79.899 Other long term (current) drug therapy; Z98.890 Other specified postprocedural states
CPT/HCPCS: 85025; 87086; 81001; 36415 ×2; 93005; 87641; 27447; 96374; 64447; 88311; 88304; 97161; 97530 ×8; 96376 ×3; 96375; 80048; 85027; 97116 ×5; G0378 ×77; A4663; J7120 ×2; J0690 ×6; J3010 ×3; J3490 ×6; J1100; J0330; J2003; J2250; J2704; J2405; J2795 ×2; J2371; J3373 ×2; A9272; A4649 ×3; A4930 ×2; C1713; C1776; A5120; A4215; A4223 ×2; A4213; A4222; A4221; A4216; J1885 ×4